=== PATIENT | male | born 1930 | race Caucasian/White ===

== ENCOUNTER → 2018-08-21 | Outpatient (CLI) | payer OTHER | LOC: ULTRA 10:30 | DX: M79.89 Other specified soft tissue disorders (principal); M79.662 Pain in left lower leg; R09.89 Other specified symptoms and signs involving the circulatory and respiratory systems ==

== ENCOUNTER → 2018-09-02 | Outpatient (CLI) | payer OTHER | LOC: ULTRA 16:07 | DX: I73.9 Peripheral vascular disease, unspecified (principal); R09.89 Other specified symptoms and signs involving the circulatory and respiratory systems ==